=== PATIENT | female | born 1985 | race Two or more races ===

== ENCOUNTER 2016-08-12 04:53 | Inpatient (IN) | payer OTHER ==
[~2016-08-12] VITALS: Ht 152.4 cm; Wt 72.6 kg
[~2016-08-12 04:53] MED LIST: METR500T PO
[2016-08-12] MEDS ORDERED: ACETAMINOPHEN 325 MG TABLET. PO PRN ×3 (05:00→17:00)
[2016-08-12] MEDS ORDERED: IBUPROFEN 600 MG TABLET. PO PRN ×2 (05:00→17:00)
[2016-08-12] MEDS ORDERED: BUTORPHANOL 2 MG/ML VIAL. IV PRN (05:00)
[2016-08-12] MEDS ORDERED: LIDOCAINE 1% PF 30 ML VIAL. INJ PRN (05:00)
[2016-08-12] MEDS ORDERED: ONDANSETRON PF 4 MG/2 ML VIAL. IV PRN (05:00)
[2016-08-12] MEDS ORDERED: CITRIC ACID/SODIUM CITRATE 30 ML SOLUTION. PO PRN (05:00)
[2016-08-12] MEDS ORDERED: OXYTOCIN 30 UNIT/500 ML PREMIX 500 ML IV PRN ×4 (05:00→17:00)
[2016-08-12] MEDS ORDERED: TERBUTALINE 1 MG/ML VIAL. SQ PRN (05:00)
[2016-08-12] MEDS ORDERED: 0.9 % SODIUM CHLORIDE 10 ML DISP.SYRIN. IV PRN ×3 (05:00→17:00)
[2016-08-12] MEDS ORDERED: FENTANYL PF 100 MCG/2 ML VIAL. IV PRN ×2 (05:00)
[2016-08-12 05:29] VITALS: BP 127/73
[2016-08-12] MEDS: IV RINGERS,LACTATED 1000ML 1,000 ML IV SCH ×2 (05:35→10:41)
[2016-08-12 05:45] LABS: BASO % 0 % (0-3); EOS % 3 % (0-3); HEMATOCRIT 34.7 % (36.0-47.0); HEMOGLOBIN 11.4 g/dL (12.0-15.5); LYMPH % 17 % (24-48); MEAN CORPUSCULAR HEMOGLOBIN 29 pg (25-35); MEAN CORPUSCULAR HGB CONC 33 g/dL (31-37); MEAN CORPUSCULAR VOLUME 89 fL (79-100); MONO % 9 % (0-9); NEUT % 72 % (31-73); PLATELET COUNT 201 x10^3/uL (140-400); RED CELL DISTRIBUTION WIDTH 13.5 % (11.5-14.5); WHITE BLOOD COUNT 12.3 x10^3/uL (4.0-11.0)
[2016-08-12 07:45] LABS: % EOS 5 % (0-5)
[2016-08-12 07:47] LABS: PLT ESTIMATE ADEQUATE (ADEQUATE)
--- NOTE | 2016-08-12 16:08 | PDOC ---
VAGINAL DELIVERY DATE DATE: 08/12/16 TIME: 16:06 : 2 Para: 1 EDC: Aug 19, 2016 VAGINAL DELIVERY: VTX PLACENTA: Spontaneous SEX: Male WEIGHT 6/14 Nuchal Cord: No Amniotic Fluid: Clear PAIN: Natural EPISIOTOMY: No EXTENSION: No EBL 400cc COMPLICATIONS none CONDITION stable Signs of Intrauterine Infectio: None Shoulder Dystocia: No DIAGNOSIS TIUP del Problems: CECY KOO MD Aug 12, 2016 16:08
[2016-08-12] MEDS ORDERED: HYDROCORTISONE 1% TOPICAL OINTMENT 30GM TUBE. TP PRN ×2 (16:45→17:00)
[2016-08-12] MEDS ORDERED: MAG HYDROX/ALUMINUM HYD/SIMETH 30 ML ORAL.SUSP PO PRN ×2 (16:45→17:00)
[2016-08-12] MEDS ORDERED: SIMETHICONE 80 MG TAB.CHEW PO PRN ×2 (16:45→17:00)
[2016-08-12] MEDS ORDERED: BENZOCAINE 20% TOPICAL AEROSOL SPRAY 57GM CAN. TP PRN ×2 (16:45→17:00)
[2016-08-12] MEDS ORDERED: MAGNESIUM HYDROXIDE 2,400 MG/30 ML ORAL.SUSP. PO PRN ×2 (16:45→17:00)
[2016-08-12] MEDS ORDERED: DIPHENHYDRAMINE HCL 25 MG CAPSULE PO PRN ×2 (16:45→17:00)
[2016-08-12] MEDS ORDERED: HYDROCODONE/APAP 5/325MG TABLET. PO PRN ×2 (16:45)
[2016-08-12] MEDS ORDERED: DOCUSATE SODIUM 100 MG CAPSULE. PO PRN ×2 (16:45→17:00)
[2016-08-12] MEDS ORDERED: ZOLPIDEM 5 MG TABLET. PO PRN ×2 (16:45→17:00)
[2016-08-12] MEDS ORDERED: PHENYLEPH/MINERAL OIL/PETROLAT RECTAL OINTMENT 28GM TUBE. RC PRN ×2 (16:45→17:00)
[2016-08-12] MEDS ORDERED: IBUPROFEN 800 MG TABLET. PO PRN (17:00)
[2016-08-12] MEDS ORDERED: OXYCODONE/APAP 5/325 TABLET. PO PRN ×2 (17:00)
[2016-08-12 20:00] VITALS: BP 116/68
[2016-08-13 01:17] VITALS: BP 120/68
[2016-08-13 05:09] VITALS: BP 104/71
[2016-08-13] MEDS ORDERED: FERROUS SULFATE 325 MG TABLET. PO SCH ×2 (08:00)
--- NOTE | 2016-08-13 13:29 | PDOC ---
Provider Note Provider Note Doing well VSS Uterus NTTP FU in AM CECY KOO MD Aug 13, 2016 13:29
[2016-08-13 15:05] VITALS: BP 98/63
[2016-08-13 21:00] VITALS: BP 99/65
[2016-08-14 04:47] VITALS: BP 105/71
--- NOTE | 2016-08-14 10:21 | PDOC1 ---
OB - History Hx of Present Care: Good Care Ultrasounds: Normal mid trimester US Obstetrical Complications: None Medical Complications: None Past Family/Social History * Past Medical, Surgical, Family and Obstetric Histories reviewed from chart. Blood Type: B+ Rubella: Immune RPR/VDRL: Negative GBS Status: Negative HBsAG: Negative OB - Chief Complaint & HPI Date of Admission: Date of Admission: Aug 12, 2016 at 04:53 Chief Complaint/History : 2 Para: 1 EDC: Aug 19, 2016 Reason for admission: induction of labor Indication for induction: other Admission Nurse Assessment Rev: Yes Problems: OB - Admission Exam Physical Exam Vitals: VS - Last 72 Hours, by Label Date Time Temp Pulse Resp B/P Pulse Ox O2 Delivery O2 Flow Rate FiO2 08/14/16 04:47 98.2 85 20 105/71 Room Air 98.2 08/13/16 21:00 98.2 78 20 99/65 98.2 08/13/16 15:05 97.8 88 18 98/63 97 Room Air 97.8 08/13/16 05:09 98.3 90 18 104/71 99 98.3 08/13/16 01:17 98.8 98 18 120/68 96 Room Air 98.8 08/12/16 20:00 98.5 110 18 116/68 95 98.5 08/12/16 15:02 20 08/12/16 05:29 98.4 90 20 127/73 Room Air 98.4 HEENT: Normal, Nasal Mucosa Normal, Oropharynx Normal, Moist Membranes, Fontanelles Normal Heart: Regular Rate Lungs: Clear, Equal Abdomen: Gravid Extremities: Normal Pulses, No tenderness or swelling Reflexes: Normal Cervical Dilatation: 2cm Effacement: 25% Station: -3 Amniotic Fluid: Clear Heart Rate: Normal Accelerations: Accelerations Present Contractions on Admission: 6-10 Minutes Apart Assessment/Plan Assessment/Plan TIUP Induction ACSVD CECY KOO MD Aug 14, 2016 10:21
--- NOTE | 2016-08-14 10:22 | PDOC3 ---
OB DISCHARGE SUMMARY DATE OF ADMISSION: 05/14/16 DATE OF DISCHARGE: 05/16/16 REASON FOR ADMISSION: Induction of labor PROCEDURES: Ultrasound INTRAPARTUM PROCEDURES: Spontanous Vag Deliv PROCEDURES: None OPERATIONS: None DISCHARGE DIAGNOSIS: Term Delivered DISCHARGE INFORMATION: Activity, Diet HOSPITAL COURSE Unremarkable CONDITION AT DISCHARGE Stable CECY KOO MD Aug 14, 2016 10:22
[2016-08-14] MEDS ORDERED: NAPR500T PO (10:23)
[2016-08-14] MEDS ORDERED: HYDR-971 PO (10:23)
[2016-08-14 10:44] VITALS: BP 109/78
[2016-08-14 13:30] VITALS: BP 117/77
== END 2016-08-14 14:15 | disposition home or self-care (01) | DRG 775 ==
LOC: 3 SO LND 04:53 → 3 NORTH 19:50
PROVIDERS: ADMIT Specialist; ATTEND Specialist
PROC: 10E0XZZ Delivery of Products of Conception, External Approach (ICD-10-PCS; principal; 2016-08-12)
DX: O80 Encounter for full-term uncomplicated delivery (principal); Z3A.38 38 weeks gestation of pregnancy; Z37.0 Single live birth
CPT/HCPCS: 36415; 85007; 85014; 85027; 86593; 86850; 86900; 86901; J2590; J3010; J7120